=== PATIENT | male | born 1970 | race Caucasian/White ===

== ENCOUNTER 2023-06-04 20:19 | Outpatient (REF) | payer MEDICAID, SELFPAY ==
[2023-06-04 22:57] LABS: Amphetamine Screen Urine NEGATIVE (NEGATIVE); Barbiturates Screen Urine NEGATIVE (NEGATIVE); Benzodiazepines Screen Urine POSITIVE (NEGATIVE); Buprenorphine Screen Urine NEGATIVE (NEGATIVE); Cannabinoid Screen Urine POSITIVE (NEGATIVE); Cocaine Screen Urine NEGATIVE (NEGATIVE); Methadone Screen Urine NEGATIVE (NEGATIVE); Methamphetamines Screen Urine NEGATIVE (NEGATIVE); Opiate Screen Urine NEGATIVE (NEGATIVE); Oxycodone Screen Urine NEGATIVE (NEGATIVE); Phencyclidine Screen Urine NEGATIVE (NEGATIVE); Tricyclic Antidepressant Urine POSITIVE (NEGATIVE)
[2023-06-10 05:06] LABS: Benzodiazepines Negative (Cutoff=300); Cannabinoid Positive (.); Carboxy THC Conf, MS, UR >750 ng/mL (Cutoff=10)
== END 2023-06-04 20:20 | disposition home or self-care (01) ==
LOC: LAB 20:19
PROVIDERS: PCP Physician Assistant; Visit Provider Physician Assistant
DX: G25.81 Restless legs syndrome (principal); Z79.899 Other long term (current) drug therapy
CPT/HCPCS: 36415; 80307; 80346; 80349